=== PATIENT | male | born 1975 | race Caucasian/White ===

== ENCOUNTER 2016-08-09 16:09 | Emergency (ER) | payer SELFPAY ==
[~2016-08-09] VITALS: Ht 177.8 cm; Wt 77.0 kg
[2016-08-09 17:14] LABS: BASOPHILS % (AUTO) 0.4 % (0.0-2.0); EOSINOPHILS % (AUTO) 2.8 % (1.0-6.0); HEMATOCRIT 41.9 % (41-53); HEMOGLOBIN 14.4 g/dL (13.5-17.5); LYMPHOCYTES # (AUTO) 1.4 K/uL (1.0-4.8); LYMPHOCYTES % (AUTO) 21.1 % (22.0-44.0); MEAN CORPUSCULAR HEMOGLOBIN 29.1 pg (26.0-34.0); MEAN CORPUSCULAR HGB CONC 34.3 G/dL (31.0-37.0); MEAN CORPUSCULAR VOLUME 85 fL (80-100); MONOCYTES # (AUTO) 0.6 K/uL (0.1-1.0); MONOCYTES % (AUTO) 9.6 % (2.0-9.0); NEUTROPHILS # (AUTO) 4.5 K/uL (1.8-7.7); NEUTROPHILS % (AUTO) 66.1 % (40.0-70.0); PLATELET COUNT (AUTO) 199 K/uL (150-450); RED BLOOD CELL COUNT(AUTO) 4.95 MIL/uL (4.50-5.90); RED CELL DISTRIBUTION WIDTH 13.3 % (11.5-14.5); WHITE BLOOD COUNT (AUTO) 6.8 K/uL (4.5-11.0)
[2016-08-09 17:33] LABS: ANION GAP 9 mmol/L (8-16); CALCIUM, TOTAL 8.9 mg/dL (8.8-10.5); CARBON DIOXIDE 27 mmol/L (22-29); CHLORIDE 105 mmol/L (98-107); CREATININE 0.85 mg/dL (0.60-1.30); GLOMERULAR FILTR. RATE CALC > 60 mL/min (>60); POTASSIUM 4.1 mmol/L (3.5-5.1); SODIUM SERUM 141 mmol/L (136-145); UREA NITROGEN, BLOOD 14 mg/dL (7-18)
[2016-08-09 17:39] LABS: ALANINE AMINOTRANSFERASE 33 U/L (12-78); ALBUMIN 3.9 g/dL (3.4-5.0); ASPARTATE AMINOTRANSFERASE 20 U/L (15-37); BILIRUBIN,TOTAL 0.4 mg/dL (0.1-1.0); TOTAL PROTEIN, SERUM 6.8 g/dL (6.4-8.2)
[2016-08-09 19:27] VITALS: BP 127/73
== END 2016-08-09 19:30 | disposition home or self-care (01) ==
LOC: EMS 16:11
DX: F20.9 Schizophrenia, unspecified (principal); F17.200 Nicotine dependence, unspecified, uncomplicated; Z88.8 Allergy status to other drugs, medicaments and biological substances
CPT/HCPCS: 36415; 80053; 80307; 85025; 99285; 99406; G0480